=== PATIENT | female | born 1990 | race Caucasian/White ===

== ENCOUNTER 2019-02-11 18:09 | Inpatient (IN) | payer OTHER ==
[2019-02-11] MEDS ORDERED: Ringers Lactate 1,000 ML IV PRN (20:55)
[2019-02-11] MEDS ORDERED: OXYTOCIN/LR 20 UNIT/1,000 ML BAG IV SCH (21:00)
[2019-02-11] MEDS ORDERED: Ringers Lactate 1,000 ML IV SCH (21:00)
[2019-02-11] MEDS ORDERED: ROPIVACAINE HCL 0.2% 20ML AMP IV SCH (21:00)
[2019-02-11] MEDS ORDERED: ROPIVACAINE HCL 100 ML IV PRN (21:00)
[2019-02-11] MEDS ORDERED: FENTANYL CITR 100 MCG/2 ML IV ONE (21:00)
[2019-02-11] MEDS ORDERED: CARBOPROST TROME 250 MCG/ML IM ONE (21:04)
[2019-02-11] MEDS ORDERED: METHYLERGONOVINE 0.2MG/ML AMP IM ONE (21:04)
[2019-02-11 21:26] LABS: Basophils % 0.6 % (0-1.3); Lymphocytes % 21.9 % (15.3-44.8); RBC Red Blood Cell Count 4.47 M/uL (3.86-4.86)
[2019-02-11 21:28] LABS: Urine Appearance CLEAR; Urine Bilirubin NEGATIVE (NEG); Urine Blood NEGATIVE (NEG); Urine Color YELLOW; Urine Glucose NEGATIVE (NEG); Urine Protein NEGATIVE (NEG); Urine Specific Gravity <=1.005 (1.005-1.030); Urine Urobilinogen 0.2 mg/dL (0.2-1.0)
[2019-02-11 21:33] LABS: Urine Microscopic Reflex NO UMIC
[2019-02-11 21:41] VITALS: BMI 32.8
[2019-02-11 23:35] LABS: RPR (Rapid Plasma Reagin) NON-REACT (NON-REACT)
[2019-02-12] MEDS ORDERED: PROMETHAZINE 25 MG/ML VIAL ONE (01:45)
[2019-02-12] MEDS ORDERED: PROMETHAZINE 25 MG/ML VIAL IM PRN (01:49)
[2019-02-12] MEDS ORDERED: LIDOCAINE 1% 20 ML MDV ONE (10:12)
--- NOTE | 2019-02-12 10:34 | PREOPHP ---
Date of Admission: 02/11/2019 This 28-year-old 3, para 1, 37 weeks and 5 days now, came in last night. Richard regular ly. Noted to have a change from 3 to 4 cm during the observation time, is Rh positive, immune to Rub jolynn. Negative beta strep screen. Records not available but patient knows this from memory. Patient has had epidural. She is now 6 cm but the baby is still -1, almost -2 station. Her epidural is too effective. She cannot move her legs and patient herself has requested we turn it down from 10 to 8 and we may have to adjust it down further. Within the next hour or so we will start some light Pitoc in, get the baby to lower and rupture of membranes, and I think we will get much faster progress. La von talk given. Anticipate delivery sometime relatively soon. TALIB/TONI Voice ID: [id number]
[2019-02-12] MEDS ORDERED: BISACODYL 10 MG RECTAL SUPP RECT PRN (10:37)
[2019-02-12] MEDS ORDERED: Oxycodone HCl/Acetaminophen 1 TAB TAB PO PRN ×2 (10:37)
[2019-02-12] MEDS ORDERED: DOCUSATE NA/SENNA CONC 1 TAB PO PRN (10:37)
[2019-02-12] MEDS ORDERED: DIPHENHYDRAMINE 25 MG TAB/CAP PO PRN (10:37)
[2019-02-12] MEDS ORDERED: ACETAMINOPHEN 500 MG TAB PO PRN (10:37)
--- NOTE | 2019-02-12 10:43 | PN ---
Subjective: The patient feels much better with the epidural set at 8 maintenance, may even want it l ower down a little bit more. She can ask the nurses if she chooses. Baby looks good. She is now 7 cm, -1 station. Rupture of membranes, clear fluid. She is on light Pitocin. Anticipate more rapid progress from this point forward. Full discussion with the patient's . TALIB/TONI Voice ID: [id number] Report ID: [id number]
[2019-02-12] MEDS ORDERED: OXYTOCIN/LR 20 UNIT/1,000 ML BAG IV SCH (11:00)
[2019-02-12] MEDS: IBUPROFEN 200 MG TAB PO PRN (19:55)
[2019-02-12] MEDS: METHYLERGONOVINE 0.2 MG TAB PO PRN (19:55)
--- NOTE | 2019-02-12 21:29 | OP ---
Surgeon: John Mondragon MD A 28-year-old 2, para 1, 37 weeks 4 days, came in an early labor, went from 3 to 4 cm during observation during the night, requested and received epidural anesthesia. This was too effective and the patient herself requested it be lowered and eventually she requested it be stopped. Second stag e was about 25 minutes. Spontaneous vaginal delivery of an estimated 6.5 pounds to 7 pounds female, Apgars 9 and 9. A very small first-degree laceration involving the left labia minora, three stitches of 2-0 chromic. Schultze delivery of the placenta, which was inspected and noted to be intact and n ormal. 350 or less mL blood loss. Rh positive. Immune to Rubella. Negative beta strep screen. To lerated all procedures well. Final Diagnoses: Term intrauterine 37 weeks 4 days, spontaneous labor, vaginal delivery, e pidural anesthesia. TALIB/TONI Voice ID: [id number] Report ID: [id number]
[2019-02-13] MEDS: METHYLERGONOVINE 0.2 MG TAB PO PRN
[2019-02-13] MEDS: IBUPROFEN 200 MG TAB PO PRN (05:18)
--- NOTE | 2019-02-13 07:51 | DS ---
28-year-old, 2, para 1, 37 weeks 4 days, came in in early labor. Subsequently delivered afte r an uneventful short second stage of approximately 20 minutes, 6-pound 8-ounce female, Apgars 9 and 9. Very small first-degree laceration, requiring 3 sutures of 2-0 chromic. Epidural anesthesia. Sc hultze delivery of the placenta, which was inspected and noted to be heavily calcified. Less than 35 0 cc blood loss. Rh positive, immune to rubella, negative beta strep screen. ; afebrile, ambulating, and voiding. Lochia is normal. She will be dismissed later today to report back to my o ffice in 6 weeks for followup. To report any temperature elevation of 100 degrees or greater, severe pain, heavy bleeding, or any other type of abnormalities. Requires no analgesics on dismissal. We will use Motrin. No post-epidural problems. Has been offered Tdap during the , declined. Offered Tdap again today. Final Diagnoses: Term intrauterine at 37 weeks 4 days, spontaneous labor, vaginal delivery , epidural anesthesia, Tdap offered. TALIB/TONI Voice ID: [id number] Report ID: [id number]
[2019-02-13 09:57] VITALS: BP 119/60; TEMP 97
[2019-02-16 04:26] LABS: HBsAG Nonreactive (Nonreactive)
== END 2019-02-13 13:15 | disposition home or self-care (01) | DRG 807 ==
LOC: L&D 18:09 → 2ND-WC 20:37
PROVIDERS: ADMIT Specialist; ATTEND Specialist
PROC: 10907ZC Drainage of Amniotic Fluid, Therapeutic from Products of Conception, Via Natural or Artificial Opening (ICD-10-PCS; principal; 2019-02-12)
PROC: 10E0XZZ Delivery of Products of Conception, External Approach (ICD-10-PCS; 2019-02-12)
PROC: 0HQ9XZZ Repair Perineum Skin, External Approach (ICD-10-PCS; 2019-02-12)
DX: O70.0 First degree perineal laceration during delivery (principal); Z37.0 Single live birth; Z3A.37 37 weeks gestation of pregnancy
CPT/HCPCS: 36415; 81003; 85025; 86592; 86901; 87340; J2210; J2550; J2590; J2795; J3010

== ENCOUNTER 2020-08-07 06:30 | Day surgery (SDC) | payer OTHER ==
[2020-08-06 15:58] LABS: Urine Appearance CLEAR; Urine Bilirubin NEGATIVE (NEG); Urine Blood NEGATIVE (NEG); Urine Color YELLOW; Urine Glucose NEGATIVE (NEG); Urine Protein NEGATIVE (NEG); Urine pH 6.5 (5.0-7.0)
[2020-08-06 15:59] LABS: Urine Microscopic Reflex NO UMIC
[2020-08-06 16:00] LABS: Absolute Lymphocytes (CBC) 1.9 K/uL (0.7-4.9); Basophils % 1.1 % (0-1.3); Hematocrit 40.9 % (36.0-45.0); Lymphocytes % 37.3 % (15.3-44.8); MPV 9.4 fL (7.6-11.3); RBC Red Blood Cell Count 4.75 M/uL (3.86-4.86)
[2020-08-06 16:09] LABS: Protime INR 1.05
[2020-08-07] MEDS: Ringers Lactate 1,000 ML IV ONE (07:00)
[2020-08-07] MEDS ORDERED: CEFAZOLIN/SWI 1gm 1 GM/10 ML SYR ONE (07:09)
[2020-08-07] MEDS ORDERED: FENTANYL CITR 100 MCG/2 ML ONE ×2 (07:27→10:01)
[2020-08-07] MEDS ORDERED: propofoL 200 MG/20 ML VIAL IV ONE ×2 (07:27→10:01)
[2020-08-07] MEDS ORDERED: MIDAZOLAM HCL 2 MG/2 ML INJ ONE ×2 (07:28→10:02)
[2020-08-07] MEDS ORDERED: ONDANSETRON 4 MG/2 ML VIAL ONE ×2 (07:28→10:02)
[2020-08-07] MEDS ORDERED: LIDOCAINE 2% MPF 5 ML VIAL ONE (07:28)
[2020-08-07] MEDS ORDERED: ROCURONIUM 50 MG/5 ML VIAL IV ONE (07:29)
[2020-08-07] MEDS ORDERED: GLYCOPYRROLATE 0.2 MG/ML SYR ONE (07:30)
[2020-08-07] MEDS ORDERED: dexAMETHasone 10 MG/ML VIAL ONE (07:30)
[2020-08-07] MEDS ORDERED: NEOSTIGMINE 1 MG/ML -5 ML ONE (08:02)
[2020-08-07] MEDS ORDERED: EPHEDRINE SULF 50 MG/ML VIAL ONE (08:17)
--- NOTE | 2020-08-07 09:05 | DS ---
Hospital Course: The patient underwent diagnostic laparoscopy with finding of endometriosis-mild ful guration of implants was performed. She will be observed for 2 hours and then dismissed. We discuss ed pros and cons of oral medications to suppress any endometriosis that is clear stage on followup vi sits. She is instructed to report any temperature elevation of 100 degrees or greater, severe pain, bleeding, or any other type of problems. TALIB/TONI Voice ID: [id number] Report ID: [id number]
[2020-08-07 09:09] VITALS: TEMP 97.5
--- NOTE | 2020-08-07 09:09 | OP ---
Surgeon: John Mondragon MD Indication: Kathrin Macias is a 29-year-old female with chronic pelvic and abdominal pain. Negative imaging. This has been discussed with the patient on numerous occasions in the office. We have offered oral medications as the primary way of trying to control the discomfort, feeling the patient probably has endometriosis. The patient says that she wishes to proceed with diagnostic laparoscopy to make sure that this is what we are dealing with. The pros and cons of this thoroughly discussed. Infection; blood loss; anesthetic complications; injury to bladder, bowel, ureter; postoperative complications; clots in legs; pneumonia discussed. The patient knows fully well this does not constitute all the possible problems that could occur during or following surgery. Procedure In Detail: After general anesthesia and timeout was performed. A _trocar was placed and the pelvis was reviewed. The right ovary was noted to have an endometriotic implant, the appendix was normal. The upper abdomen, liver, and gallbladder were normal. All peritoneal surfaces in the cul-de-sac and other areas were normal. There were small inflammatory hydatid cyst along the tubes, but these were not thought to be clinically significant. Working instruments were then placed and the endometriotic implants especially involving the right ovary were fulgurated. At this point, procedure was discontinued. Instruments removed and 3 puncture cox were closed tight. The patient tolerated all procedures well. Will be sent to the recovery room in good condition. She will be observed for 2 hours and then dismissed to return to my office next week and we will discuss endometriosis, says she knows that when you can visualize endometriosis, there are clear type blebs elsewhere in the peritoneum that could activate and become more uncomfortable later and we will discuss oral medication, pros and cons. Diagnoses: Chronic pelvic pain, diagnostic laparoscopy, endometriosis fulguration of implants. MARKELC/MODL Voice ID: [id number] Report ID: [id number] ROBER
[2020-08-07] MEDS ORDERED: KETOROLAC 30 MG/ML INJ ONE (09:25)
[2020-08-07 09:27] VITALS: BP 103/63; O2SAT 100
--- NOTE | 2020-08-13 15:02 | PREOPHP ---
Date of Admission: 08/07/2020 History Of Present Illness: This is a 30-year-old female, 3, para 2, 1 miscarriage with year s of chronic pelvic and abdominal pain. The patient has had a negative CT scan. Negative pelvic exa m. She has no GI symptoms and no history in the family of ulcerative colitis or Crohn disease and no symptoms that would make us think that anything such as that is going on here. She knows that diagn ostic laparoscopy cannot guarantee that we will find anything. We suspect endometriosis to some degr ee. If we find endometriosis, will do fulguration. She also signed for incidental appendectomy and she knows that Dr. Cloud will be with me during the surgery. Family History: Maternal grandmother with hypertension. Maternal grandfather with myocardial infarc tion. Paternal grandmother with diabetes. Maternal grandmother, gallstones. Past Medical History: The patient has had a history of asthma, but no problems recently and is not t aking any kind of medication. She has wisdom teeth removed, but otherwise no surgery. Allergies: SHE HAS NO DRUG ALLERGIES. Medications: She has not taken any medicines prior to admission. Social History: She does not smoke. Physical Examination: HEENT: Clear. Pupils equal, round, reactive to light and accommodation. Conjunctivae well perfused . No oral, lingual, or buccal lesions. Chest and Lungs: Clear. Heart: Without murmurs, thrills, heaves, or rubs. Breasts: Not examined today but on previous visits without masses. Abdomen: Soft. Pelvic: Exam shows the uterus retroverted, but tilted slightly to patient's right side, but otherwis e normal and no pain. Both adnexa are clear. Assessment And Plan: We will proceed with diagnostic laparoscopy, fulguration of implants if endomet riosis is discovered and possible incidental appendectomy. TALIB/TONI Voice ID: [id number]
== END 2020-08-07 09:57 | disposition home health service (06) ==
LOC: OR 06:30
PROVIDERS: ATTEND Specialist
PROC: 0U504ZZ Destruction of Right Ovary, Percutaneous Endoscopic Approach (ICD-10-PCS; principal; 2020-08-07 07:30)
DX: N80.1 Endometriosis of ovary (principal); R10.2 Pelvic and perineal pain; R10.9 Unspecified abdominal pain; Z20.822 Contact with and (suspected) exposure to COVID-19
CPT/HCPCS: 85025; 36415; 81025; 85610; 85730; 81003; 58662; U0003; J2704; J2250; J3010; J1100; J2710; J0690; J7120; J2405